=== PATIENT | female | born 1975 | race Caucasian/White ===

== ENCOUNTER 2018-04-15 08:50 | Emergency (ER) | payer OTHER ==
--- NOTE | 2018-04-15 12:08 | ER ---
Nurse's Notes [facility] Name: Marli Harrison Age: 42 yrs Sex: Female : 1975 Arrival Date: 04/15/2018 Time: 08:56 Bed 16 Private MD: Diagnosis: Sprain of foot Presentation: 04/15 08:57 Presenting complaint: Patient states: "I was packing and moving boxes yesterday when I aa5 heard a loud pop to my left foot". Pt c/o left foot pain. 08:57 Transition of care: patient was not received from another setting of care. Onset of aa5 symptoms was April 2018. Risk Assessment: Do you want to hurt yourself or someone else? Patient reports no desire to harm self or others. Initial Sepsis Screen: Does the patient meet any 2 criteria? No. Patient's initial sepsis screen is negative. Does the patient have a suspected source of infection? No. Patient's initial sepsis screen is negative. Care prior to arrival: None. 08:57 Method Of Arrival: Ambulatory aa5 08:57 Acuity: ANDREA 4 aa5 Triage Assessment: 09:00 General: Appears in no apparent distress. comfortable, Behavior is calm, cooperative, bp appropriate for age. 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 - Social history:: Smoking status: Patient uses tobacco products, smokes one-half pack cigarettes per day. - Ebola Screening: : No symptoms or risks identified at this time. Screenin:16 Abuse screen: Denies threats or abuse. Denies injuries from another. Nutritional bp screening: No deficits noted. Tuberculosis screening: No symptoms or risk factors identified. Fall Risk None identified. Assessment: 09:00 General: Appears in no apparent distress. comfortable, Behavior is calm, cooperative, bp appropriate for age. Pain: Complains of pain in left foot. Neuro: Level of Consciousness is awake, alert, obeys commands, Oriented to person, place, time, situation, Appropriate for age. Cardiovascular: No deficits noted. Respiratory: Airway is patent Respiratory effort is even, unlabored, Respiratory pattern is regular, symmetrical. GI: No signs and/or symptoms were reported involving the gastrointestinal system. : No signs and/or symptoms were reported regarding the genitourinary system. EENT: No deficits noted. Derm: No deficits noted. Musculoskeletal: Circulation, motion, and sensation intact. Range of motion: intact in all extremities. 09:56 Reassessment: ALL CURRENT STUDIES COMPLETED, RESULTS PENDING. bp 11:00 Reassessment: ALL CURRENT STUDIES COMPLETED, NO S/S ACUTE DISTRESS, DISPO PENDING. bp 12:47 Reassessment: PT D/C HOME WITH CRUTCHES, DX WITH FOOT SPRAIN. bp Vital Signs: 08:59 BP 120 / 82; Pulse 88; Resp 16 S; Temp 98.7(O); Pulse Ox 99% on R/A; Weight 106.14 kg aa5 (R); Height 5 ft. 4 in. (162.56 cm) (R); Pain 10/10; 09:56 BP 110 / 82; Pulse 78; Resp 16; Pulse Ox 99% ; bp 11:00 Pulse 67; Resp 14; Pulse Ox 100% ; bp 12:49 BP 113 / 79; Pulse 78; Resp 16; Pulse Ox 99% ; bp 08:59 Body Mass Index 40.17 (106.14 kg, 162.56 cm) aa5 ED Course: 08:56 Patient arrived in ED. bp 08:56 [facility] kb 08:56 Martin Mccord MD is Attending Physician. kb 08:56 Arm band placed on. aa5 08:58 Elan Marie, RN is Primary Nurse. bp 09:00 Triage completed. aa5 09:16 Patient has correct armband on for positive identification. Bed in low position. Call bp light in reach. Side rails up X2. Adult w/ patient. 09:28 X-ray completed. Portable x-ray completed in exam room. Patient tolerated procedure ls3 well. 10:40 Foot Left 3 View XRAY Sent. bp 11:03 Foot Left 3 View In Process Unspecified. EDMS 12:48 No provider procedures requiring assistance completed. bp 12:48 Patient did not have IV access during this emergency room visit. bp Administered Medications: No medications were administered Outcome: 12:07 Discharge ordered by . kb 12:48 Discharged to home with crutches. bp 12:48 Condition: stable 12:48 Discharge instructions given to patient, Instructed on discharge instructions, follow up and referral plans. crutch walking, Demonstrated understanding of instructions, follow-up care, crutch walking. 12:49 Patient left the ED. bp Signatures: Dispatcher [employer] EDMO Sydnie Connolly, ITZ-C CAVALRY OFFICER-[place] RN RN aa5 Elan Marie RN RN bp Darlin Harris 3
--- NOTE | 2018-04-15 12:08 | EDPHYS ---
Physician Documentation [facility] Name: Marli Harrison Age: 42 yrs Sex: Female : 1975 Arrival Date: 04/15/2018 Time: 08:56 Bed 16 Private MD: ED Physician Martin Mccord HPI: 04/15 09:10 This 42 yrs old Female presents to ER via Ambulatory with complaints of Foot kb Pain. 09:10 The patient presents with pain, that is acute, tenderness. The complaints affect the kb left foot. Context: The problem was sustained at home, resulted from an unknown cause, the patient can fully bear weight, the patient is able to ambulate. Onset: The symptoms/episode began/occurred yesterday. Modifying factors: The symptoms are alleviated by nothing, the symptoms are aggravated by weight bearing. Associated signs and symptoms: The patient has no apparent associated signs or symptoms. Severity of symptoms: At their worst the symptoms were moderate, in the emergency department the symptoms are unchanged. The patient has not experienced similar symptoms in the past. The patient has not recently seen a physician. 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 - Social history:: Smoking status: Patient uses tobacco products, smokes one-half pack cigarettes per day. - Ebola Screening: : No symptoms or risks identified at this time. ROS: 09:04 Constitutional: Negative for fever, chills, and weight loss, Cardiovascular: Negative kb for chest pain, palpitations, and edema, Respiratory: Negative for shortness of breath, cough, wheezing, and pleuritic chest pain, Abdomen/GI: Negative for abdominal pain, nausea, vomiting, diarrhea, and constipation, Skin: Negative for injury, rash, and discoloration, Neuro: Negative for headache, weakness, numbness, tingling, and seizure. 09:04 MS/extremity: Positive for pain, tenderness, of the dorsum of left foot. Exam: 09:04 Constitutional: This is a well developed, well nourished patient who is awake, alert, kb and in no acute distress. Head/Face: Normocephalic, atraumatic. Chest/axilla: Normal chest wall appearance and motion. Nontender with no deformity. No lesions are appreciated. Cardiovascular: Regular rate and rhythm with a normal S1 and S2. No gallops, murmurs, or rubs. Normal PMI, no JVD. No pulse deficits. Respiratory: Lungs have equal breath sounds bilaterally, clear to auscultation and percussion. No rales, rhonchi or wheezes noted. No increased work of breathing, no retractions or nasal flaring. Abdomen/GI: Soft, non-tender, with normal bowel sounds. No distension or tympany. No guarding or rebound. No evidence of tenderness throughout. Skin: Warm, dry with normal turgor. Normal color with no rashes, no lesions, and no evidence of cellulitis. Neuro: Awake and alert, GCS 15, oriented to person, place, time, and situation. Cranial nerves II-XII grossly intact. Motor strength 5/5 in all extremities. Sensory grossly intact. Cerebellar exam normal. Normal gait. 09:04 Musculoskeletal/extremity: Extremities: grossly normal except: noted in the dorsum of left foot: pain, tenderness, ROM: no acute changes, Circulation is intact in all extremities. Sensation intact. Weight bearing: able to fully bear weight. Vital Signs: 08:59 BP 120 / 82; Pulse 88; Resp 16 S; Temp 98.7(O); Pulse Ox 99% on R/A; Weight 106.14 kg aa5 (R); Height 5 ft. 4 in. (162.56 cm) (R); Pain 10/10; 09:56 BP 110 / 82; Pulse 78; Resp 16; Pulse Ox 99% ; bp 11:00 Pulse 67; Resp 14; Pulse Ox 100% ; bp 12:49 BP 113 / 79; Pulse 78; Resp 16; Pulse Ox 99% ; bp 08:59 Body Mass Index 40.17 (106.14 kg, 162.56 cm) aa5 MDM: 08:56 Patient medically screened. kb 09:02 Data reviewed: vital signs, nurses notes. Data interpreted: Pulse oximetry: on room air kb is 99 %. Interpretation: normal. 12:06 Counseling: I had a detailed discussion with the patient and/or guardian regarding: the kb historical points, exam findings, and any diagnostic results supporting the discharge/admit diagnosis, radiology results, the need for outpatient follow up, a orthopedic surgeon, to return to the emergency department if symptoms worsen or persist or if there are any questions or concerns that arise at home. 04/15 08:58 Order name: Foot Left 3 View XRAY kb 04/15 11:03 Order name: Foot Left 3 View; Complete Time: 12:14 EDMS 04/15 12:14 Order name: Crutches; Complete Time: 12:28 kb Administered Medications: No medications were administered Disposition: 15:34 Co-signature as Attending Physician, Martin Mccord MD. rn Disposition: 04/15/18 12:07 Discharged to Home. Impression: Sprain of foot. - Condition is Stable. - Discharge Instructions: Foot Sprain. - Work release form, Medication Reconciliation Form, Thank You Letter, Antibiotic Education, Prescription Opioid Use form. - Follow up: Emergency Department; When: As needed; Reason: Worsening of condition. Follow up: Private Physician; When: 2 - 3 days; Reason: Recheck today's complaints, Continuance of care, Re-evaluation by your physician. Signatures: Dispatcher [employer] EDMA Sydnie Connolly, HEAD CHARRER-C HEAD CHARRER-Ckb Martin Mccord MD MD rn Dora Carroll, RN RN aa5 Elan Marie, RN RN bp Corrections: (The following items were deleted from the chart) 12:49 12:07 04/15/2018 12:07 Discharged to Home. Impression: Sprain of foot. Condition is bp Stable. Forms are Medication Reconciliation Form, Thank You Letter, Antibiotic Education, Prescription Opioid Use. Follow up: Emergency Department; When: As needed; Reason: Worsening of condition. Follow up: Private Physician; When: 2 - 3 days; Reason: Recheck today's complaints, Continuance of care, Re-evaluation by your physician. kb
--- NOTE | 2018-04-15 12:11 | RAD REPORT ---
EXAM DESCRIPTION: RAD - Foot Left 3 View - 04/15/2018 9:28 am CLINICAL HISTORY: left foot pain COMPARISON: No comparisons FINDINGS: No fracture or dislocation suspected. Prominent calcaneal spurs.
== END 2018-04-15 12:49 | disposition home or self-care (01) ==
LOC: ER 08:50
DX: S93.602A Unspecified sprain of left foot, initial encounter (principal); M77.32 Calcaneal spur, left foot; F17.210 Nicotine dependence, cigarettes, uncomplicated; X58.XXXA Exposure to other specified factors, initial encounter; Y92.009 Unspecified place in unspecified non-institutional (private) residence as the place of occurrence of the external cause
CPT/HCPCS: 99283

== ENCOUNTER 2023-12-10 06:35 | Emergency (ER) | payer OTHER ==
--- OUTSIDE RECORDS SUMMARY | 2023-12-10 06:41 | XMS REPORT | Continuity of Care Document ---
Author Name Unknown Address [address] [facility] [address] [place] [address] [facility] thconnect Address [address] [facility]. 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 Name Role Phone Pcp, Patient Does Not Have A Primary Care Physic daysi Vivian Doherty Attending Clinician Unavailable ANANYA LAMAS Attending Clinician Unavailable LAB90 Attending Clinician Unavailable SHAHANA BAINS Attending Clinician UnavailKEILA Nina Attending Clinician Unavailable CHLOE MUNGUIA Attending Clinician Unavailable Chloe Munguia MD Attending Clinician [phone] Doctor Unassigned, Concow Attending Clinician U navailable Payers Payer Name Policy Type Policy Number Effective Date Expirati on Date Source CIGNA 2 [id number] 2022 00:00:00 CIGNA C1 [id number] Common [facility] PPO/POS II [id number] 2019 00:00:00 CIGNA II [id number] 2020 00:00:00 Problems Condition Name Condition Details Condition Category Status Onset Date Resolution Date Last Treatment Date Treating Clinician Comments Source Well adult exam Well adult exam Disease Active 01-05 00:00: 00 Nydia Seybold - Externa l Hypertensi on Hypertensi on Disease Active 11-17 00:00: 00 Nydia Yepez - Externa l Hyperlipem ia Hyperlipem ia Disease Active 11-17 00:00: 00 Nydia Yepez - Externa l Migraines Migraines Disease Active 11-17 00:00: 00 Nydia Yepez - Externa l Prediabete s Prediabete s Disease Active 11-17 00:00: 00 Nydia Lucho - Externa l Obesity Obesity Disease Active 11-17 00:00: 00 Nydia Yepez - Externa l Morbid obesity with body mass index of 40.0-49.9 Morbid obesity with body mass index of 40.0-49.9 Disease Active 12-03 00:00: 00 [facility] Morbid obesity with body mass index of 40.0-49.9 Morbid obesity with body mass index of 40.0-49.9 Disease Active 12-03 00:00: 00 [facility] Abnormal glandular Papanicola ou smear of cervix Abnormal glandular Papanicola ou smear of cervix Disease Active 12-03 00:00: 00 [facility] Obesity (BMI 30-39.9) Obesity (BMI 30-39.9) Disease Active -13 00:00: 00 [facility] Nicotine dependence with current use Nicotine dependence with current use Problem Active [facility] Localized, primary osteoarthr itis of the ankle and/or foot Arthritis of ankle, left Problem Active [facility] [id number] Chronic fatigue Problem Active [facility] [id number] Seasonal allergies Problem Active [facility] Sinus problem Sinus problem Problem Active [facility] [id number] ZEFERINO (obstructi ve sleep apnea) Problem Active [facility] High cholestero l High cholestero l Problem Active [facility] [id number] 00 Somnolence , daytime Problem Active [facility] [id number] Primary insomnia Problem Active [facility] [id number] Dependence on other enabling machines and devices Problem Active [facility] Allergies, Adverse Reactions, Alerts Allergy Name Allergy Type Status Severity Reaction(s) Onset Date Inactive Date Treating Clinician Comments Source Varenicl ine Propensi ty to adverse reaction s Active Rash 11-16 00:00: 00 Nydia Yepez - Externa l NO KNOWN ALLERGIE S Drug Class Active [facility] Social History Social Habit Start Date Stop Date Quantity Comments Source Gender identity Norma Yepez - External History of tobacco use Cigarette Smoker Nydia arias - External Sexual orientation [facility] Alcohol intake 2023-07-09 00:00:00 2023-07-09 00:00:00 Current drinker of alcohol (finding) Nydia Yepez - External Education - What is the highest level of school you have completed or the highest degree you have received? 2022-11-17 00:00:00 2022-11-17 00:00:00 Associate degree: academic program Nydia Cordova External Alcohol Comment 2022-11-16 00:00:00 2022-11-16 00:00:00 rarely Nydia Yepez - External Cigarettes smoked current (pack per day) - Reported 2022-11-16 00:00:00 2022-11-16 00:00:00 Nydia Yepez - External Cigarette pack-years 2022-11-16 00:00:00 2022-11-16 00:00:00 Nydia Yepez - External Tobacco use and exposure 2022-11-16 00:00:00 2022-11-16 00:00:00 Smokeless tobacco non-user Nydia Yepez - External Exposure to SARS-CoV-2 (event) 2019-11-12 00:00:00 2019-12-12 10:07:00 Not sure [facility] History of Social function 2019-12-04 00:00:00 2019-12-04 00:00:00 [facility] Tobacco Comment 2019-07-24 00:00:00 2019-07-24 00:00:00 1/2 PPD [facility] Sex Assigned At 1975 00:00:00 1975 00:00:00 Nydia Borrero Smoking Status Start Date Stop Date Source Unknown if ever smoked [facility] Smokes tobacco daily 2022-11-16 00:00:00 Nydia Borrero Former Smoker 2020-06-21 00:00:00 2020-06-21 00:00:00 [facility] Medications Ordered Medication Name Filled Medication Name Start Date Stop Date Current Medication? Ordering Clinician Indication Dosage Frequency Signature (SIG) Comments Components Source Ondansetron (ZOFRAN) 4 MG oral TABLET DISPERSIBLE 07-09 15:38: 30 Yes 4mg [id number] 3D Take 1 tablet (4 mg total) by mouth every 8 hours as needed for nausea. Nydia lezama Metformin HCl 1000 MG oral Tablet 07-09 00:00: 00 Yes [id number] 1000mg Take 1 tablet (1,000 mg total) by mouth daily (with breakfast) . Nydia lezama Sumatriptan Succinate 50 MG oral Tablet 07-09 00:00: 00 Yes [id number] 50mg Take 1 tablet (50 mg total) by mouth once as needed for migraine Max dose is 100 per day. Nydia lezama Diclofenac Sodium 75 MG oral Tablet Delayed Response 07-09 00:00: 00 Yes [id number] 75mg Q.5D Take 1 tablet (75 mg total) by mouth 2 times daily as needed (pain). Nydia lezama Loratadine 10 MG oral TABLET DISPERSIBLE 01-10 00:00: 00 Yes [id number] 10mg Take 1 tablet (10 mg total) by mouth daily Nydia lezama Metformin HCl 1000 MG oral Tablet 01-10 00:00: 00 07-09 00:00 :00 No [id number] 1000mg Take 1 tablet (1,000 mg total) by mouth daily (with breakfast) Only taking 1 a day Nydia lezama Ondansetron (ZOFRAN) 4 MG oral TABLET DISPERSIBLE 01-05 08:25: 32 Yes 4mg Q.[id number] 3D Take 1 tablet (4 mg total) by mouth every 8 hours as needed for nausea Nydia lezama FLUTICASONE PROPIONATE, NASAL, 50 MCG/ACT nasal Suspension 01-05 00:00: 00 Yes [id number] 50ug Use 1 spray (50 mcg total) in each nostril daily Nydia lezama Loratadine 10 MG oral TABLET DISPERSIBLE 01-05 00:00: 00 Yes [id number] 10mg Take 1 tablet (10 mg total) by mouth daily Nydia lezama Metformin HCl 1000 MG oral Tablet 01-05 00:00: 00 Yes [id number] 1000mg Take 1 tablet (1,000 mg total) by mouth daily (with breakfast) Only taking 1 a day Nydia lezama Ondansetron (ZOFRAN) 4 MG oral TABLET DISPERSIBLE 12-29 12:52: 40 Yes 4mg Q.[id number] 3D Take 1 tablet (4 mg total) by mouth every 8 hours as needed for nausea Nydia lezama Lisinopril 20 MG oral Tablet 11-17 16:14: 11-17 00:00 :00 No 20mg Take 1 tablet (20 mg total) by mouth daily Nydia lezama Atorvastati n Calcium 40 MG oral Tablet 11-17 16:14: 11-17 00:00 :00 No 40mg Take 1 tablet (40 mg total) by mouth daily Nydia lezama Metformin HCl 1000 MG oral Tablet 11-17 16:14: 11-17 00:00 :00 No 1000mg Take 1 tablet (1,000 mg total) by mouth in the morning and 1 tablet (1,000 mg total) in the evening. Take with meals. Only taking 1 a day. Nydia lezama Topiramate 100 MG oral Tablet 11-17 16:14: 11-17 00:00 :00 No 100mg Take 1 tablet (100 mg total) by mouth daily Nydia lezama Sumatriptan Succinate 50 MG oral Tablet 11-17 16:14: 02 11-17 00:00 :00 No 50mg Take 1 tablet (50 mg total) by mouth once Nydia lezama Ondansetron (ZOFRAN) 4 MG oral TABLET DISPERSIBLE 11-17 16:04: 48 Yes 4mg Q.[id number] 3D Take 1 tablet (4 mg total) by mouth every 8 hours as needed for nausea Nydia lezama Atorvastati n Calcium 40 MG oral Tablet 11-17 00:00: 00 Yes [id number] 40mg Take 1 tablet (40 mg total) by mouth nightly Nydia lezama Topiramate 100 MG oral Tablet 11-17 00:00: 00 Yes [id number] 100mg Take 1 tablet (100 mg total) by mouth daily Nydia lezama Lisinopril 20 MG oral Tablet 11-17 00:00: 00 Yes [id number] 20mg Take 1 tablet (20 mg total) by mouth daily Nydia lezama Sumatriptan Succinate 50 MG oral Tablet 11-17 00:00: 00 07-09 00:00 :00 No [id number] 50mg Take 1 tablet (50 mg total) by mouth once for 1 dose Max dose is 100 per day Nydia lezama Metformin HCl 1000 MG oral Tablet 11-17 00:00: 00 01-05 00:00 :00 No [id number] 1000mg Take 1 tablet (1,000 mg total) by mouth daily (with breakfast) Only taking 1 a day Nydia lezama SUMAtriptan 50 mg tablet 07-01 19:18: 34 Yes 50mg Take 50 mg by mouth once now. [facility] Flonase 50 MCG/ACT Flonase 50 MCG/ACT 06-21 00:00: 00 No 2{spray _in_eac h_nostr il} QD Flonase 50 MCG/ACT Cetirizine HCl 10 MG Cetirizine HCl 10 MG 06-21 00:00: 00 No 1{table t} Cetirizine HCl 10 MG Chantix Starting Month Moody Chantix Starting Month Moody 3-06 00:00: 00 09-13 00:00 :00 No Na Doherty as directed [facility] metroNIDAZO LE (FLAGYL) 500 mg tablet 2-16 00:00: 00 08-04 05:59 :00 No [id number] 500mg Take 1 tablet by mouth 2 (two) times daily with meals for 7 days. [facility] SUMAtriptan 50 mg tablet 13 16:30: 45 Yes 50mg Take 50 mg by mouth once now. [facility] diclofenac 75 mg EC tablet 07-10 00:00: 00 Yes TAKE 1 TABLET BY MOUTH TWICE DAILY NEEDED FOR PAIN FOR 15 DAYS WITH FOOR OR MILK [facility] Imitrex Imitrex 07-10 00:00: 00 Yes Na Doherty 1 tablet as needed [facility] No known medications No Un don [facility] Atorvastati n Calcium Atorvastati n Calcium Yes Na Doherty 1 tablet Commo [facility] Imitrex 50 MG Imitrex 50 MG No 1{table t_as_ne eded} Imitrex 50 MG Chantix Starting Month Moody 0.5 MG X 11 & 1 MG X 42 Chantix Starting Month Moody 0.5 MG X 11 & 1 MG X 42 No QD Chantix Starting Month Moody 0.5 MG X 11 & 1 MG X 42 Atorvastati n Calcium 10 MG Atorvastati n Calcium 10 MG No 1{table t} QD Atorvastat in Calcium 10 MG Immunizations Ordered Immunization Name Filled Immunization Name Date Status Comments Source Pneumococcal Conjugate 15 (Vaxneuvance) 2023-01-05 00:00:00 Juan Yepez - External Tdap- (Boostrix, Adacel) 2023-01-05 00:00:00 Juan Cordova External Influenza Virus Vaccine, Quad, Egg Free 2022-05-12 00:00:00 Juan Cordova External Influenza Virus Vaccine, Quad, Egg Free 2022-05-12 00:00:00 Completed Nydia Seybold - External Influenza Virus Vaccine, Quad, Egg Free 2022-05-12 00:00:00 Completed Nydia Seybold - External Influenza Virus Vaccine, No Preserv, age 6 months and up 2021-06-09 00:00:00 Completed Nydia Seybold - External Influenza Virus Vaccine, No Preserv, age 6 months and up 2021-06-09 00:00:00 Completed Nydia Seybold - External Influenza Virus Vaccine, No Preserv, age 6 months and up 2021-06-09 00:00:00 Completed Nydia Seybold - External Afluria single dose Afluria single dose 16:09:00 Completed [facility] Afluria single dose Afluria single dose 16:09:00 Completed [facility] Influenza Virus Vaccine, No Preserv, age 6 months and up 2020-06-21 00:00:00 Completed Nydia Isabelybold - External Kenalog (Triamcinolone) Kenalog (Triamcinolone) 2019-08-29 09:36:00 Completed [facility] Kenalog (Triamcinolone) Kenalog (Triamcinolone) 2019-08-29 09:36:00 Completed [facility] Fluzone Fluzone 2019-08-15 16:57:00 Completed [facility] Fluzone Fluzone 2019-08-15 16:57:00 Completed [facility] Influenza, Seasonal, Injectable 2019-08-15 00:00:00 Completed Nydia Seybold - External Fluzone Fluzone 2019-08-15 00:00:00 Completed [facility] Influenza Virus Vaccine, No Preserv, age 6 months and up Unknown Completed Nydia Seybold - External Influenza Virus Vaccine, Quad, Egg Free Unknown Completed Nydia Isabelybold - External Influenza Virus Vaccine, No Preserv, age 6 months and up Unknown Completed Nydia Isabelybold - External Influenza, Seasonal, Injectable Unknown Completed Nydia Jacksonold - External Tdap- (Boostrix, Adacel) Unknown Completed Nydia Seybold - External Pneumococcal Conjugate 15 (Vaxneuvance) Unknown Completed Nydia Seybold - External Vital Signs Vital Name Observation Time Observation Value Comments S ource Systolic blood pressure 2023-07-09 21:37:00 113 mm[Hg] Nydia Isabelybo ld - External Diastolic blood pressure 2023-07-09 21:37:00 67 mm[Hg] Nydia Isabelybo ld - External Heart rate 2023-07-09 21:37:00 98 /min Kelse y Seybold - External Body temperature 2023-07-09 21:37:00 36.39 Wanda Nydia Seybold - External Respiratory rate 2023-07-09 21:37:00 20 /min Nydia Seybold - External Body height 2023-07-09 21:37:00 162.6 cm Norma ey Seybold - External Body weight 2023-07-09 21:37:00 107.956 kg Norma ey Seybold - External BMI 2023-07-09 21:37:00 40.85 kg/m2 Norma ey Seybold - External Oxygen saturation in Arterial blood by Pulse oximetry 2023-07-09 21:37:00 99 /min Nydia Isabelybo ld - External Systolic blood pressure 2023-01-05 13:20:00 131 mm[Hg] Nydia Seybo ld - External Diastolic blood pressure 2023-01-05 13:20:00 80 mm[Hg] Nydia Isabelybo ld - External Heart rate 2023-01-05 13:20:00 102 /min Kelse y Seybold - External Body temperature 2023-01-05 13:20:00 36.56 Wanda Nydia Seybold - External Respiratory rate 2023-01-05 13:20:00 14 /min Nydia Seybold - External Body height 2023-01-05 13:20:00 162.6 cm Norma ey Seybold - External Body weight 2023-01-05 13:20:00 104.327 kg Norma ey Seybold - External BMI 2023-01-05 13:20:00 39.48 kg/m2 Norma ey Seybold - External Oxygen saturation in Arterial blood by Pulse oximetry 2023-01-05 13:20:00 99 /min Nydia Seybo ld - External Systolic blood pressure 2022-12-29 17:51:00 129 mm[Hg] Nydia Seybo ld - External Diastolic blood pressure 2022-12-29 17:51:00 74 mm[Hg] Nydia Seybo ld - External Heart rate 2022-12-29 17:51:00 84 /min Kelse y Seybold - External Body temperature 2022-12-29 17:51:00 36.78 Wanda Nydia Seybold - External Respiratory rate 2022-12-29 17:51:00 16 /min Nydia Seybold - External Body height 2022-12-29 17:51:00 162.6 cm Norma ey Seybold - External Body weight 2022-12-29 17:51:00 108.591 kg Norma ey Seybold - External BMI 2022-12-29 17:51:00 41.09 kg/m2 Norma ey Seybold - External Systolic blood pressure 2022-11-17 21:02:00 135 mm[Hg] Nydia Seybo ld - External Diastolic blood pressure 2022-11-17 21:02:00 83 mm[Hg] Nydia Seybo ld - External Heart rate 2022-11-17 21:02:00 87 /min Kelse y Seybold - External Body temperature 2022-11-17 21:02:00 36.44 Wanda Nydia Seybold - External Respiratory rate 2022-11-17 21:02:00 18 /min Nydia Seybold - External Body height 2022-11-17 21:02:00 162.6 cm Norma ey Seybold - External Body weight 2022-11-17 21:02:00 111.585 kg Norma ey Seybold - External BMI 2022-11-17 21:02:00 42.23 kg/m2 Norma ey Seybold - External Oxygen saturation in Arterial blood by Pulse oximetry 2022-11-17 21:02:00 99 /min Nydia Isabelybo ld - External height 2020-06-21 15:20:00 61.00 [in_i] [facility] weight 2020-06-21 15:20:00 260.0 [lb_av] Co [facility] temperature 2020-06-21 15:20:00 97.8 [degF] Com mon [facility] bmi 2020-06-21 15:20:00 49.12 kg/m2 Comm on [facility] oximetry 2020-06-21 15:20:00 97 % Commo n [facility] respiratory rate 2020-06-21 15:20:00 15 /min Common [facility] blood pressure systolic 2020-06-21 15:20:00 126 mm[Hg] [facility] blood pressure diastolic 2020-06-21 15:20:00 57 mm[Hg] Common [place] [facility] Systolic blood pressure 2019-12-04 14:54:00 154 mm[Hg] [facility] Diastolic blood pressure 2019-12-04 14:54:00 85 mm[Hg] [facility] Heart rate 2019-12-04 14:54:00 79 /[facility] Body temperature 2019-12-04 14:54:00 37.17 Wanda [facility] Respiratory rate 2019-12-04 14:54:00 18 /min [facility] Body height 2019-12-04 14:54:00 165.1 cm [facility] Body weight 2019-12-04 14:54:00 109.77 kg [facility] BMI 2019-12-04 14:54:00 40.27 kg/m2 [facility] Systolic blood pressure 2019-07-24 16:28:00 130 mm[Hg] [facility] Diastolic blood pressure 2019-07-24 16:28:00 80 mm[Hg] [facility] Heart rate 2019-07-24 16:28:00 87 /min Unive [facility] Body temperature 2019-07-24 16:28:00 36.44 Wanda [facility] Respiratory rate 2019-07-24 16:28:00 18 /min [facility] Body height 2019-07-24 16:28:00 162.6 cm [facility] Body weight 2019-07-24 16:28:00 104.327 kg [facility] BMI 2019-07-24 16:28:00 39.48 kg/m2 [facility] Procedures Procedure Date / Time Performed Performing Clinicia n Source BI SCREENING MAMMOGRAM BILATERAL 2019-12-12 15:58:00 Nilda Chloe [facility] ASSIGNMENT OF BENEFITS 2019-12-12 15:05:21 Docto r Unassigned, Concow [facility] DSU PRE-OP 2019-12-04 05:01:00 Doctor Unass igned, Concow [facility] ASSIGNMENT OF BENEFITS 2019-07-24 16:03:47 Docto r Unassigned, Concow [facility] Encounters Start Date/Time End Date/Time Encounter Type Admission Type Attending Clinicians Care Facility Care Department Encounter ID Source 2021-07-06 12:19:35 Outpatient Doherty, Na STLMLC STLMLC [id number] [facility] 2021-07-06 12:18:57 Outpatient Doherty, Na STLMLC STLMLC [id number] [facility] 2021-07-06 12:13:26 Outpatient Doherty, Na STLMLC STLMLC [id number] [facility] 2021-07-06 11:27:47 Outpatient Doherty, Na STLMLC STLMLC [id number] [facility] 2021-07-06 11:27:34 Outpatient Doherty, Na STLMLC STLMLC [id number] [facility] 2021-07-06 11:14:53 Outpatient Doherty, Na STLMLC STLMLC [id number] [facility] 2021-07-06 11:12:29 Outpatient Doherty, Na STLMLC STLMLC [id number] [facility] 2021-07-06 11:09:46 Outpatient Doherty, Na STLMLC STLMLC [id number] [facility] 2021-07-06 11:08:53 Outpatient Doherty, Na STLMLC STLMLC [id number] [facility] 2024-01-15 14:30:00 2024-01-15 14:30:00 Outpatient PREZAS, ANANYA JINGINNY CAMPOVERDE [id number] Nydia [facility] 2024-01-07 15:30:00 2024-01-07 15:30:00 Outpatient PREZAS, ANANYA NYDIA CAMP[place]DE [id number] [facility] 2023-11-23 00:00:00 2023-11-23 00:00:00 Outpatient PREZAS, ANANYA NYDIA CAMPOVERDE [id number] [facility] 2023-11-22 00:00:00 2023-11-22 00:00:00 Outpatient PREZAS, ANANYA NYDIA CAMPOVERDE [id number] Nydia [facility] 2023-11-06 00:00:00 2023-11-06 00:00:00 Outpatient PREZAS, ANANYACHIP CAMPOVERDE [id number] [facility] 2023-10-03 00:00:00 2023-10-03 00:00:00 Outpatient PREZAS, ANANYA NYDIA CAMP[place]DE [id number] [facility] 2023-09-04 00:00:00 2023-09-04 00:00:00 Outpatient PREZAS, ANANYA NYDIA CAMPOVERDE [id number] [facility] 2023-07-09 16:00:00 2023-07-09 16:00:00 Outpatient PREZAS, ANANYACHIP CAMPOVERDE [id number] [facility]23-[facility]06 16:00:00 2023-07-06 16:00:00 Outpatient PREZAS, ANANYA NYDIA CAMPOVERDE [id number] [facility] 2023-07-06 00:00:00 2023-07-06 00:00:00 Outpatient PREZAS, ANANYA NYDIA CAMPOVERDE [id number] [facility] 2023-07-04 08:15:00 2023-07-04 08:15:00 Outpatient LABDarrel CAMPOVERDE [id number] [facility] 2023-06-14 00:00:00 2023-06-14 00:00:00 Outpatient PREZAS, ANANYA NYDIA NYDIA [id number] Nydia Isabelhugo 2023-02-09 12:00:00 2023-02-09 12:00:00 Outpatient NYDIA NYDIA [id number] Nydia Isabelhugo 2023-02-09 00:00:00 2023-02-09 00:00:00 Outpatient SHAHANA BAINS NYDIA CAMPOVERDE [id number] [facility] 2023-01-10 00:00:00 2023-01-10 00:00:00 Outpatient PREZAS, ANANYA NYDIA NYDIA [id number] Nydia Isabelhugo 2023-01-10 00:00:00 2023-01-10 00:00:00 Outpatient PREZAS, ANANYA NYDIA CAMPOVERDE [id number] [facility] 2023-01-09 10:00:00 2023-01-09 10:00:00 Outpatient NYDIA CAMPOVERDE [id number] [facility] 2023-01-05 08:30:00 2023-01-05 08:30:00 Outpatient PREZAS, ANANYA NYDIA CAMPOVERDE [id number] Nydia [facility] 2023-01-02 00:00:00 2023-01-02 00:00:00 Outpatient PREZAS, ANANYA NYDIA CAMPOVERDE [id number] Nydia [facility] 2022-12-29 13:30:00 2022-12-29 13:30:00 Outpatient SHAHANA BAINS NYDIA CAMP[place]DE [id number] [facility] 2022-12-29 08:05:00 2022-12-29 08:05:00 Outpatient LAB90 NYDIA CAMPOVERDE [id number] Nydia [facility] 2022-12-29 00:00:00 2022-12-29 00:00:00 Outpatient PREZAS, ANANYA NYDIA [place]AMP[place]DE [id number] [facility] 2022-11-27 00:00:00 2022-11-27 00:00:00 Outpatient PREZAS, ANANYA NYDIA CAMPOVERDE [id number] [facility] 2022-11-17 16:15:00 2022-11-17 16:15:00 Outpatient PREZAS, ANANYA NYDIA CAMPOVERDE [id number] Nydia Yepez 2022-08-25 16:12:17 2022-08-25 16:12:17 Outpatient [facility] [id number] Marcello Estrella 2022-05-26 15:10:07 2022-05-26 15:10:07 Outpatient [facility] [id number] Marcello Estrella 2022-05-12 08:11:51 2022-05-12 08:11:51 Outpatient [facility] [id number] Marcello Estrella 2020-09-20 00:00:00 2020-09-20 00:00:00 (TEL) STLMLC STLMLC [id number] [facility] 2020-09-05 09:40:00 2020-09-05 09:40:00 Outpatient KEILA JEFFERS [facility] [id number] [facility] 2020-09-05 09:40:00 2020-09-05 09:40:00 Outpatient KEILA JEFFERS [facility] [id number] [facility] 2020-08-15 08:10:00 2020-08-15 08:10:00 Outpatient KEILA JEFFERS [facility] [id number] [facility] 2020-07-30 15:00:00 2020-07-30 15:00:00 Outpatient Bety MUNGUIACHLOE [facility] [id number] [facility] 2020-06-21 00:00:00 2020-06-21 00:00:00 OFFICE VISIT ESTAB PT LEVEL 4 STLMLC STLMLC [id number] [facility] 2020-02-15 10:30:00 2020-02-15 10:30:00 [facility] [id number] [facility] 2019-12-12 10:08:00 2019-12-12 23:59:00 Hospital Encounter Don Munguiay [facility] [id number] [facility] 2019-12-12 00:00:00 2019-12-12 00:00:00 Outpatient R NILDA [facility] [id number] [facility] 2019-12-12 00:00:00 2019-12-12 00:00:00 Orders Only Doctor Unassigned, Concow [facility] [id number] [facility] 2019-12-11 00:00:00 2019-12-11 00:00:00 [facility] [id number] [facility] 2019-12-04 09:41:20 2019-12-04 10:50:09 [facility] [id number] [facility] 2019-12-04 10:00:00 2019-12-04 10:00:00 Outpatient R MUNGUIA, [facility] [id number] [facility] 2019-12-04 00:00:00 2019-12-04 00:00:00 Orders Only Doctor Unassigned, Concow [facility] [id number] [facility] 2019-12-01 15:00:00 2019-12-01 15:00:00 Outpatient [facility] [id number] [facility] 2019-09-05 08:00:00 2019-09-05 08:00:00 Outpatient R MUNGUIA, [facility] [id number] [facility] 2019-08-29 09:00:00 2019-08-29 09:00:00 Outpatient R CHLOE MUNGUIA [facility] [id number] [facility] 2019-08-29 09:00:00 2019-08-29 09:00:00 Outpatient [facility] [id number] [facility] 2019-08-28 13:59:00 2019-08-28 13:59:00 Outpatient [facility] [id number] [facility] 2019-08-15 16:00:00 2019-08-15 16:00:00 Outpatient [facility] [id number] [facility] 2019-07-29 00:00:00 2019-07-29 00:00:00 Patient Secure Msg Nilda [facility] [id number] 134 [id number] [facility] 2019-07-27 00:00:00 2019-07-27 00:00:00 Telephone Chloe Munguia [facility] [id number] [facility] 2019-07-24 10:45:00 2019-07-24 11:14:41 Outpatient R CHLOE MUNGUIA [facility] [id number] [facility] 2019-07-24 10:05:00 2019-07-24 11:14:41 Office Visit Chloe Munguia [facility] [id number] 134 [id number] [facility] 2019-07-24 00:00:00 2019-07-24 00:00:00 Orders Only Doctor Unassigned, [facility] [id number] [facility] 2019-07-10 11:20:00 2019-07-10 11:20:00 Outpatient [facility] [id number] [facility] Results Test Description Test Time Test Comments Results Result Co mments Source HEMOGLOBIN [id number] 03:10:52* Test Item Value Reference Range Interpretation Comme nts HEMOGLOBIN A1c (test code = 02413) 6.1 % 4.2-5.6 H [employer] GUIDELINES FOR HGB A1C: PREDIABETES/INCREASED RISK . . . . . . . 5.7-6.4% DIAGNOSIS OF DIABETES . . . . . . . . . >=6.5% WITH CONFIRMATION OR APPROPRIATE SYMPTOMS NOTE: ASSAY MAY BE AFFECTED BY HEMOGLOBINOPATHIES (SICKLE CELL ANEMIA, S-C DISEASE, OTHERS) OR ARTIFICIALLY LOWERED BY DECREASED RED CELL SURVIVAL (HEMOLYTIC ANEMIAS, BLOOD LOSS, ETC.). CONSIDER ALTERNATE TESTING OR LABORATORY CONSULTATION. BI SCREENING MAMMOGRAM [id number] 17:44:03Examination:BI SCREENING MAMMOGRAM BILATERAL History:Patient is 44 year old and is seen for: ?44-year-old female for screening mammogram.. Computer-aided detection (CAD) utilized. Comparisons: Prior mammogram 01/01/2018. Findings:The breasts have scattered areas of fibroglandular density. There is no evidence of suspicious masses, calcifications, or other abnormal findings. Impression:No mammographic evidence of malignancy. Recommendation:Annual mammographic follow-up BI-RADS Category: Both [facility] Date/Time Note Provider Source 2022-12-29 12:52:28 [id number]:52:28F ormatting of this note is different from the original.Chief Complaint Patient presents with Well Woman Exam ALONSO TalaveraN [id number] [id number]:53:26Nurse [id number] for patient [facility] [place] [address].[id number] [facility]"
[2023-12-10] MEDS ORDERED: methocarbamoL 750 MG TAB ONE (07:11)
[2023-12-10] MEDS ORDERED: HYDROCODONE/APAP 10/325 TAB ONE (07:12)
[2023-12-10] MEDS ORDERED: IBUPROFEN 400 MG TAB ONE (07:12)
[2023-12-10 07:32] LABS: Absolute Basophils 0.1 K/uL (0-0.5); Absolute Eosinophils 0.2 K/uL (0-0.5); Absolute Lymphocytes (CBC) 1.9 K/uL (0.7-4.9); Absolute Monocytes 0.5 K/uL (0.1-1.3); Absolute Neutrophil 5.5 K/uL (1.8-8.0); Eosinophils % 1.9 % (0-4.4); Hematocrit 39.4 % (36.0-45.0); Hemoglobin 13.1 g/dL (12.0-15.0); Lymphocytes % 23.7 % (15.3-44.8); MCH 31.2 pg (27.0-35.0); MCHC 33.4 g/dL (32.0-36.0); MCV 93.5 fL (80-100); Neutrophils % 67.4 % (41.7-73.7); Platelets 258 thou/uL (152-406); RBC Red Blood Cell Count 4.21 M/uL (3.86-4.86); Red Cell Distribution Width 13.7 % (12.1-15.2)
--- NOTE | 2023-12-10 07:53 | EDPHYS ---
Physician Documentation [facility] Name: Marli Harrison Age: 48 yrs Sex: Female : 1975 Arrival Date: 12/10/2023 Time: 06:35 Bed 5 Private MD: SWATI Physician Balbir Santoyo HPI: 12/09 06:54 This 48 yrs old Female presents to ER via Unassigned with complaints of Foot sp4 Injury. 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 - Infectious Disease History:: Denies. - Social history:: Smoking status: Patient denies any tobacco usage or history of. ROS: 07:46 Constitutional: Negative for fever, chills, and weight loss, Eyes: Negative for injury, tamera pain, redness, and discharge, ENT: Negative for injury, pain, and discharge, Neck: Negative for injury, pain, and swelling, Cardiovascular: Negative for chest pain, palpitations, and edema, Respiratory: Negative for shortness of breath, cough, wheezing, and pleuritic chest pain, Abdomen/GI: Negative for abdominal pain, nausea, vomiting, diarrhea, and constipation, Back: Negative for injury and pain, : Negative for injury, bleeding, discharge, and swelling, Skin: Negative for injury, rash, and discoloration, Neuro: Negative for headache, weakness, numbness, tingling, and seizure, Psych: Negative for depression, anxiety, suicide ideation, homicidal ideation, and hallucinations, Allergy/Immunology: Negative for hives, rash, and allergies, Endocrine: Negative for neck swelling, polydipsia, polyuria, polyphagia, and marked weight changes, Hematologic/Lymphatic: Negative for swollen nodes, abnormal bleeding, and unusual bruising, 07:46 MS/extremity: Positive for decreased range of motion, pain, swelling, tenderness, of the dorsum of left foot, Exam: 07:46 Constitutional: This is a well developed, well nourished patient who is awake, alert, tamera and in no acute distress. Head/Face: Normocephalic, atraumatic. Eyes: Pupils equal round and reactive to light, extra-ocular motions intact. Lids and lashes normal. Conjunctiva and sclera are non-icteric and not injected. Cornea within normal limits. Periorbital areas with no swelling, redness, or edema. ENT: Nares patent. No nasal discharge, no septal abnormalities noted. Tympanic membranes are normal and external auditory canals are clear. Oropharynx with no redness, swelling, or masses, exudates, or evidence of obstruction, uvula midline. Mucous membranes moist. Neck: Trachea midline, no thyromegaly or masses palpated, and no cervical lymphadenopathy. Supple, full range of motion without nuchal rigidity, or vertebral point tenderness. No Meningismus. Chest/axilla: Normal chest wall appearance and motion. Nontender with no deformity. No lesions are appreciated. Cardiovascular: Regular rate and rhythm with a normal S1 and S2. No gallops, murmurs, or rubs. Normal PMI, no JVD. No pulse deficits. Respiratory: Lungs have equal breath sounds bilaterally, clear to auscultation and percussion. No rales, rhonchi or wheezes noted. No increased work of breathing, no retractions or nasal flaring. Abdomen/GI: Soft, non-tender, with normal bowel sounds. No distension or tympany. No guarding or rebound. No evidence of tenderness throughout. Back: No spinal tenderness. No costovertebral tenderness. Full range of motion. Skin: Warm, dry with normal turgor. Normal color with no rashes, no lesions, and no evidence of cellulitis. Neuro: Awake and alert, GCS 15, oriented to person, place, time, and situation. Cranial nerves II-XII grossly intact. Motor strength 5/5 in all extremities. Sensory grossly intact. Cerebellar exam normal. Normal gait. Psych: Awake, alert, with orientation to person, place and time. Behavior, mood, and affect are within normal limits. 07:46 Musculoskeletal/extremity: Extremities: grossly normal except: noted in the dorsum of left foot: decreased ROM, pain, ROM: full active range of motion, full passive range of motion, limited active range of motion due to pain, limited passive range of motion due to pain, Circulation is intact in all extremities. Sensation intact. Compartment Syndrome exam of affected extremity: is normal. Weight bearing: able to fully bear weight, without difficulty, DVT Exam: no swelling, negative Homans' sign noted on exam, no appreciated bluish discoloration, no erythema, no increased warmth, pain, tenderness, Vital Signs: 06:52 BP 142 / 94; Pulse 78; Resp 18; Temp 98.7; Pulse Ox 100% on R/A; Weight 102.06 kg; bm8 Height 5 ft. 4 in. ; Pain 8/10; 07:58 BP 125 / 92; Pulse 74; Resp 16 S; Pulse Ox 100% on R/A; kc6 06:52 Body Mass Index 38.62 (102.06 kg, 162.56 cm) bm8 06:52 Pain Scale: Adult bm8 MDM: 06:58 Patient medically screened. sp4 07:48 Differential diagnosis: fracture, sprain, foreign body, penetrating trauma, arthritis, tamera gout, cellulitis. Data reviewed: vital signs, nurses notes, lab test result(s), radiologic studies, plain films. Consideration of Admission/Observation Escalation of care including admission/observation considered. I considered the following discharge prescriptions or medication management in the emergency department Medications were administered in the Emergency Department. See MAR. Independent interpretation of the following test(s) in the Emergency Department X-Ray: My interpretation is xray foot. Test considered but Not performed: Ultrasound no usg. Historians other than the Patient: Spouse/Significant Other: well informed. Care significantly affected by the following chronic conditions: Diabetes, Hypertension, oa, migraines, hyperlipid. 12/09 07:43 Order name: CBC with Automated Diff EDMS 12/09 07:55 Order name: Comprehensive Metabolic Panel EDMS 12/09 07:55 Order name: Uric Acid EDMS 12/09 06:58 Order name: Foot Left 3 View XRAY sp4 12/09 07:57 Order name: RAD EDMS 12/09 07:51 Order name: Walking boot; Complete Time: 07:58 tamera Administered Medications: 07:17 Drug: [place] PO 10 mg-325 mg 1 tabs PO once Route: PO; ph 07:57 Follow up: Response: No adverse reaction; Pain is decreased; RASS: Alert and Calm (0) kc6 07:17 Drug: Ibuprofen PO 800 mg PO once Route: PO; ph 07:57 Follow up: Response: No adverse reaction kc6 07:17 Drug: Methocarbamol PO 750 mg PO once Route: PO; ph 07:57 Follow up: Response: No adverse reaction kc6 Disposition Summary: 12/10/23 07:53 Discharge Ordered Notes: Location: Home [facility] Problem: new tamera Symptoms: have improved tamera Condition: Stable tamera Diagnosis - Nondisplaced fracture of fifth metatarsal bone, left foot - base tamera Followup: tamera - With: Private Physician - When: 2 - 3 days - Reason: Recheck today's complaints, Continuance of care, Re-evaluation by your physician Followup: tamera - With: Scott Mckay MD - When: 2 - 3 days - Reason: Recheck today's complaints, Re-evaluation by your physician Discharge Instructions: - Discharge Summary Sheet [facility] - Metatarsal Fracture [facility] Forms: - Medication Reconciliation Form [facility] - Antibiotic Education tamera - Prescription Opioid Use tamera - Patient Portal Instructions [facility] - Leadership Thank You Letter [facility] - Work release form kc6 Prescriptions: - Ibuprofen 600 mg Oral tablet - take 1 tablet ORAL route every 6 hours As needed take with food; 20 tablet; [facility] Refills: 0, Product Selection Permitted Signatures: Dispatcher [employer] Balbir Farrar MD MD cha Hall, Patricia RN RN Po Garrett MD MD sp4 Ortiz Tyson RN RN bm8 Maura Chase RN kc6
--- NOTE | 2023-12-10 07:53 | ER ---
Nurse's Notes [facility] Name: Marli Harrison Age: 48 yrs Sex: Female : 1975 Arrival Date: 12/10/2023 Time: 06:35 Bed 5 Private MD: Diagnosis: Nondisplaced fracture of fifth metatarsal bone, left foot-base Presentation: 12/09 06:54 Chief complaint: Patient states: I have been having left outer foot pain for one month. bm8 Coronavirus screen: Vaccine status: Patient reports receiving the 2nd dose of the covid vaccine. At this time, the client does not indicate any symptoms associated with coronavirus-19. Ebola Screen: Patient negative for fever greater than or equal to 101.5 degrees Fahrenheit, and additional compatible Ebola Virus Disease symptoms Patient denies exposure to infectious person. Patient denies travel to an Ebola-affected area in the 21 days before illness onset. No symptoms or risks identified at this time. Initial Sepsis Screen: Does the patient meet any 2 criteria? No. Patient's initial sepsis screen is negative. Does the patient have a suspected source of infection? No. Patient's initial sepsis screen is negative. Risk Assessment: Do you want to hurt yourself or someone else? Patient reports no desire to harm self or others. Onset of symptoms was November 10, 2023. 06:54 Method Of Arrival: Ambulatory 8 06:54 Acuity: ANDREA 4 bm8 Triage Assessment: 06:55 General: Appears in no apparent distress. comfortable, Behavior is calm, cooperative, bm8 appropriate for age. Pain: Complains of pain in lateral side of left foot. EENT: No deficits noted. No signs and/or symptoms were reported regarding the EENT system. Musculoskeletal: Circulation, motion, and sensation intact. Range of motion: intact in all extremities, Reports left lateral foot pain for one month, but the pain is getting worse today. 07:02 Neuro: No deficits noted. Level of Consciousness is awake, alert, obeys commands, bm8 Oriented to person, place, time, situation, Appropriate for age. Cardiovascular: Heart tones S1 S2 present Capillary refill < 3 seconds Patient's skin is warm and dry. Respiratory: Airway is patent Trachea midline Respiratory effort is even, unlabored, Respiratory pattern is regular, symmetrical, Breath sounds are clear bilaterally. 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 - Infectious Disease History:: Denies. - Social history:: Smoking status: Patient denies any tobacco usage or history of. Screenin:15 [facility] ED Fall Risk Assessment (Adult) History of falling in the last 3 months, kc6 including since admission No falls in past 3 months (0 pts) Confusion or Disorientation No (0 pts) Intoxicated or Sedated No (0 pts) Impaired Gait No (0 pts) Mobility Assist Device Used No (0 pt) Altered Elimination No (0 pt) Score/Fall Risk Level 0 - 2 = Low Risk. Abuse screen: Denies threats or abuse. Denies injuries from another. Nutritional screening: No deficits noted. Tuberculosis screening: No symptoms or risk factors identified. Assessment: 07:16 General: Appears in no apparent distress. comfortable, well groomed, well developed, kc6 Behavior is calm, cooperative, appropriate for age. Pain: Complains of pain in left foot. Neuro: Level of Consciousness is awake, alert, obeys commands, Oriented to person, place, time, situation, Appropriate for age. Cardiovascular: Capillary refill < 3 seconds. Respiratory: Airway is patent Trachea midline Respiratory effort is even, unlabored, Respiratory pattern is regular, symmetrical. GI: No signs and/or symptoms were reported involving the gastrointestinal system. : No signs and/or symptoms were reported regarding the genitourinary system. EENT: No signs and/or symptoms were reported regarding the EENT system. Derm: No signs and/or symptoms reported regarding the dermatologic system. Skin is intact, is healthy with good turgor, Skin is pink, warm \T\ dry. Musculoskeletal: No signs and/or symptoms reported regarding the musculoskeletal system. Circulation, motion, and sensation intact. Capillary refill < 3 seconds, Range of motion: intact in all extremities. 07:47 Reassessment: Patient appears in no apparent distress at this time. Patient and/or ph family updated on plan of care and expected duration. Pain level reassessed. Vital Signs: 06:52 BP 142 / 94; Pulse 78; Resp 18; Temp 98.7; Pulse Ox 100% on R/A; Weight 102.06 kg; bm8 Height 5 ft. 4 in. ; Pain 8/10; 07:58 BP 125 / 92; Pulse 74; Resp 16 S; Pulse Ox 100% on R/A; kc6 06:52 Body Mass Index 38.62 (102.06 kg, 162.56 cm) bm8 06:52 Pain Scale: Adult 8 ED Course: 06:39 Patient arrived in ED. jj6 06:52 Ortiz Tyson RN is Primary Nurse. bm8 06:52 Arm band placed on right wrist. bm8 06:54 Po Garrett MD is Attending Physician. sp4 06:55 Triage completed. bm8 07:00 Report received from KEREN Alcantar. kc6 07:06 Attending Physician role handed off by Po Garrett MD tamera 07:06 Balbir Santoyo MD is Attending Physician. tamera 07:11 Report given to keren Wilson and keren Lorenzo. bm8 07:15 Initial lab(s) drawn, by nj, sent to lab. Inserted saline lock: 20 gauge in right kc6 antecubital area, using aseptic technique. Blood collected. 07:16 Patient has correct armband on for positive identification. Bed in low position. Call kc light in reach. Side rails up X 1. Adult w/ patient. Pulse ox on. NIBP on. 07:53 Scott Mckay MD is Referral Physician. tamera 08:09 Ortho shoe applied to left foot. kc6 08:09 No provider procedures requiring assistance completed. IV discontinued, intact, kc6 bleeding controlled, No redness/swelling at site. Pressure dressing applied. 08:10 Provided Education on: walking boot, follow up with orthopedist. kc6 Administered Medications: 07:17 Drug: [place] PO 10 mg-325 mg 1 tabs PO once Route: PO; ph 07:57 Follow up: Response: No adverse reaction; Pain is decreased; RASS: Alert and Calm (0) kc6 07:17 Drug: Ibuprofen PO 800 mg PO once Route: PO; ph 07:57 Follow up: Response: No adverse reaction kc6 07:17 Drug: Methocarbamol PO 750 mg PO once Route: PO; ph 07:57 Follow up: Response: No adverse reaction kc6 Medication: 08:10 VIS not applicable for this client. kc6 Outcome: 07:53 Discharge ordered by MD. philip 08:09 Discharged to home ambulatory, with significant other, [facility] 08:09 Condition: good 08:09 Discharge instructions given to patient, significant other, Instructed on discharge instructions, follow up and referral plans. medication usage, Demonstrated understanding of instructions, follow-up care, medications, Prescriptions given X 1, 08:10 Patient left the ED. kc6 Signatures: Balbir Santoyo MD MD cha Hall, Patricia, RN RN ph Linda Veraj6 Maura Chase RN RN kc6 Po Garrett MD MD sp4 Ortiz Tyson RN RN bm8
[2023-12-10 07:54] LABS: Albumin 3.6 g/dL (3.4-5.0); Anion Gap 6.1 mEq/L (5.0-15.0); Bilirubin Total 0.2 mg/dL (0.2-1.0); Globulin 3.6 g/dL (2.3-3.5); Potassium 4.1 mEq/L (3.5-5.1); Protein, Total 7.2 g/dL (6.4-8.2); Uric Acid 4.1 mg/dL (2.6-6.0)
--- NOTE | 2023-12-10 07:56 | RAD REPORT ---
EXAM DESCRIPTION: RAD - Foot Left 3 View - 12/10/2023 7:50 am CLINICAL HISTORY: LEFT LATERAL FOOT PAIN COMPARISON: Foot Left 3 View dated 04/15/2018 FINDINGS/IMPRESSION: Subacute appearing fracture at the proximal fifth metatarsal diaphysis. Alignme nt is near-anatomic. No other fractures identified.
[2023-12-10 09:02] VITALS: BP 125/92; TEMP 98.7; O2SAT 100
== END 2023-12-10 08:10 | disposition home or self-care (01) ==
LOC: ER 06:35
DX: S92.355A Nondisplaced fracture of fifth metatarsal bone, left foot, initial encounter for closed fracture (principal)
CPT/HCPCS: 36415; 80053; 84550; 85025; 99284